=== PATIENT | female | born 1965 | race Caucasian/White ===

== ENCOUNTER 2021-03-31 23:55 | Emergency (ER) | payer BC ==
[2021-04-01 00:33] LABS: Acetaminophen Less than 6.0 mcg/mL (10.0-30.0); Alcohol 125 mg/dL (Less than 10); Salicylate Less than 8.0 mg/dL (15.0-30.0)
[2021-04-01 00:49] LABS: ALT (SGPT) 29 U/L (8-55); AST (SGOT) 21 U/L (5-34); Albumin 4.2 g/dL (3.5-5.0); Alkaline Phosphatase 83 U/L (40-110); Anion Gap 15 mmol/L (10-20); BUN (Urea Nitrogen) 10 mg/dL (9.8-20.1); Bilirubin, Total 0.3 mg/dL (0.2-1.2); Calc. Creatinine Clearance 0 mL/min (70-130); Calcium 10.6 mg/dL (7.8-10.44); Carbon Dioxide 20 mmol/L (22-29); Chloride 108 mmol/L (98-107); Globulin 2.8 g/dL (2.4-3.5); Glucose 144 mg/dL (70-105); Potassium 3.9 mmol/L (3.5-5.1); Sodium 139 mmol/L (136-145)
[2021-04-01 00:50] LABS: #Eosinphils 0.2 10x3/uL (0.0-0.5); #Monocytes 0.6 10x3/uL (0.0-1.1); #Neutrophils 5.3 10x3/uL (1.5-8.4); %Basophils 0.5 % (0.0-2.0); %Eosinophils 1.7 % (0.0-6.0); %Lymphocytes 30.2 % (18.0-47.0); %Monocytes 6.8 % (0.0-10.0); %Neutrophils 60.6 % (40.0-75.0); Hemoglobin 12.5 g/dL (12.0-15.5); Mean Corpuscular HGB CONC 31.3 g/dL (32.0-36.0); Mean Corpuscular Hemoglobin 28.5 pg (27.0-33.0); Mean Corpuscular Volume 90.9 fl (81.6-98.3); Mean Platelet Volume 10.4 fl (7.4-10.4); Platelet Count 286 10x3/uL (150-450); RBC Distribution Width 15.1 % (11.5-14.5); Red Blood Cell (RBC) Count 4.39 10x6/uL (3.90-5.03); White Blood Cell (WBC) Count 8.7 10x3/uL (3.5-10.5)
[2021-04-01 01:08] LABS: Bilirubin Neg (Negative); Blood, Urine 50 (Negative); Clarity Slightly Cloudy (Clear); Glucose, Urine (Dipstick) Normal (Negative); Ketone, Urine Negative (Negative); Leukocyte Negative (Negative); Nitrite Negative (Negative); Protein, Urine (Dipstick) Negative (Neg-Trace); Specific Gravity, Urine 1.025 (1.002-1.036); Urobilinogen Normal mg/dL (Less than 2)
[2021-04-01 01:37] LABS: Amphetamine Not Detected (NotDetected); Barbiturates Screen Not Detected (NotDetected); Benzodiazepine Screen Not Detected (NotDetected); Cocaine Metabolite Screen Not Detected (NotDetected); Methadone Not Detected (NotDetected); Methamphetamine Not Detected (NotDetected); Opiate Screen Not Detected (NotDetected); Oxycodone Screen Not Detected (NotDetected); Phencyclidine (PCP) Not Detected (NotDetected); THC/Cannabinoid Screen Not Detected (NotDetected); Tricyclic Screen Not Detected (NotDetected)
[2021-04-01 01:44] LABS: Bacteria/HPF 2+ HPF (None Seen); Squamous Epithelial 0-3 HPF (0-3)
== END 2021-04-01 02:35 | disposition home or self-care (01) ==
LOC: CSHERS 23:55
DX: R41.82 Altered mental status, unspecified (principal); R53.1 Weakness; R29.702 NIHSS score 2; E03.9 Hypothyroidism, unspecified; E78.5 Hyperlipidemia, unspecified; J45.909 Unspecified asthma, uncomplicated; K21.9 Gastro-esophageal reflux disease without esophagitis; Z79.899 Other long term (current) drug therapy
CPT/HCPCS: 36416; 70450; 80053; 80306; 80307; 81003; 81015; 84443; 84484; 85025; 93005

== ENCOUNTER → 2021-07-04 | Day surgery (SDC) | payer BC ==
[2021-06-30 16:17] VITALS: BMI 30.8
[~2021-07-04] MED LIST: CEFAZOLIN 1 GM VIAL ONE; Dexamethasone 20 MG/5 ML VIAL ONE; EPINEPHrine 1 MG/ML AMP ONE; Fentanyl 100 MCG/2 ML VIAL ONE; Glycopyrrolate 0.2 MG/ML 5 ML SYRINGE ONE; HYDROcodone/Acetaminophen 10/325 mg Tablet ONE; Lidocaine 1% MPF 2 ML VIAL ONE; Lidocaine 1% PF 5 ML VIAL ONE; Midazolam HCl 2 mg/2 ml Vial ONE; Ondansetron PF 4 MG/2 ML Vial ONE; PROPOFOL 20 ML ONE; PROPOFOL 40 ML ONE; Triamcinolone 40 MG/ML VIAL ONE
== END ==
LOC: CSHSDC 07:58
PROVIDERS: ATTEND Otolaryngology Plastic Surgery within the Head & Neck
PROC: 0C7S8ZZ Dilation of Larynx, Via Natural or Artificial Opening Endoscopic (ICD-10-PCS; principal; 2021-07-04)
PROC: 0C5R8ZZ Destruction of Epiglottis, Via Natural or Artificial Opening Endoscopic (ICD-10-PCS; principal; 2021-07-04)
DX: J38.6 Stenosis of larynx (principal)
CPT/HCPCS: J0171; J0690; J1100; J2250; J2405; J2704; J3010; J3301

== ENCOUNTER 2021-07-21 14:59 | Outpatient (CLI) | payer BC | END 2021-07-21 15:00 | disposition home or self-care (01) | LOC: CSHMAMMO 14:59 | PROVIDERS: ATTEND Internal Medicine | DX: Z12.31 Encounter for screening mammogram for malignant neoplasm of breast (principal) | CPT/HCPCS: 77063; 77067 ==

== ENCOUNTER 2022-09-14 15:27 | Outpatient (CLI) | payer BC | END 2022-09-14 15:28 | disposition home or self-care (01) | LOC: CSHMAMMO 15:27 | PROVIDERS: ATTEND Internal Medicine | DX: Z12.31 Encounter for screening mammogram for malignant neoplasm of breast (principal) | CPT/HCPCS: 77063; 77067 ==

== ENCOUNTER 2023-03-14 15:06 | Outpatient (CLI) | payer BC | END 2023-03-14 15:07 | disposition home or self-care (01) | LOC: CSHLAB 15:06 | PROVIDERS: ATTEND Otolaryngology Plastic Surgery within the Head & Neck | DX: Z01.818 Encounter for other preprocedural examination (principal); J38.6 Stenosis of larynx | CPT/HCPCS: 85014; 93005; 93010 ==

== ENCOUNTER 2023-03-19 07:20 | Day surgery (SDC) | payer BC ==
[2023-03-14 15:24] VITALS: BMI 30.4
[~2023-03-19 07:20] MED LIST changes: -CEFAZOLIN 1 GM VIAL ONE; -Dexamethasone 20 MG/5 ML VIAL ONE; +Dexmedetomidine 200 MCG/2 ML VIAL ONE; -EPINEPHrine 1 MG/ML AMP ONE; -Fentanyl 100 MCG/2 ML VIAL ONE; -Glycopyrrolate 0.2 MG/ML 5 ML SYRINGE ONE; -HYDROcodone/Acetaminophen 10/325 mg Tablet ONE; -Lidocaine 1% MPF 2 ML VIAL ONE; -Lidocaine 1% PF 5 ML VIAL ONE; +Lidocaine 4% Topical Sol 50 ML BOT ONE; -Midazolam HCl 2 mg/2 ml Vial ONE; -Ondansetron PF 4 MG/2 ML Vial ONE; -PROPOFOL 20 ML ONE; -PROPOFOL 40 ML ONE; -Triamcinolone 40 MG/ML VIAL ONE
[2023-03-19] MEDS ORDERED: Triamcinolone 40 MG/ML VIAL ONE (09:49)
[2023-03-19] MEDS ORDERED: EPINEPHrine 1 MG/ML AMP ONE (09:49)
[2023-03-19] MEDS ORDERED: Ondansetron PF 4 MG/2 ML Vial ONE (09:51)
[2023-03-19] MEDS ORDERED: fentaNYL 50 mcg/mL 1 mL Vial ONE ×3 (09:51→11:47)
[2023-03-19] MEDS ORDERED: Dexamethasone 20 MG/5 ML VIAL ONE (09:51)
[2023-03-19] MEDS ORDERED: PROPOFOL 60 ML ONE (09:51)
[2023-03-19] MEDS ORDERED: Midazolam HCl 2 mg/2 ml Vial ONE (09:51)
[2023-03-19] MEDS ORDERED: Lidocaine 1% PF 5 ML VIAL ONE (09:52)
[2023-03-19] MEDS ORDERED: Acetaminophen 325 MG TAB PO PRN (11:13)
[2023-03-19] MEDS ORDERED: Ondansetron PF 4 MG/2 ML Vial IVP PRN (11:13)
[2023-03-19] MEDS ORDERED: traMADol HCl 50 MG TAB PO PRN (11:17)
[2023-03-19] MEDS ORDERED: Morphine 2 MG/ML VIAL ONE ×2 (12:39→13:19)
[2023-03-20] MEDS ORDERED: Levothyroxine Sodium 112 MCG TAB PO SCH (06:00)
[2023-03-20] MEDS ORDERED: Modafinil 100 MG TAB PO SCH (09:00)
[2023-03-20] MEDS ORDERED: Estradiol 1 MG TAB PO SCH (09:00)
== END 2023-03-19 14:25 | disposition home or self-care (01) ==
LOC: CSHSDC 07:20
PROVIDERS: ATTEND Otolaryngology Plastic Surgery within the Head & Neck
PROC: [UNRECOGNIZED PROCEDURE] (principal; 2023-03-19)
PROC: 3E0F83Z Introduction of Anti-inflammatory into Respiratory Tract, Via Natural or Artificial Opening Endoscopic (ICD-10-PCS; principal; 2023-03-19)
DX: J38.6 Stenosis of larynx (principal); G43.909 Migraine, unspecified, not intractable, without status migrainosus; J45.909 Unspecified asthma, uncomplicated; K21.9 Gastro-esophageal reflux disease without esophagitis; E03.9 Hypothyroidism, unspecified; Z90.89 Acquired absence of other organs; Z87.59 Personal history of other complications of pregnancy, childbirth and the puerperium; Z98.51 Tubal ligation status; Z90.710 Acquired absence of both cervix and uterus; Z88.5 Allergy status to narcotic agent; Z79.890 Hormone replacement therapy; Z79.899 Other long term (current) drug therapy
CPT/HCPCS: C1726; J0171; J1100; J2250; J2272; J2405; J2704; J3010; J3301

== ENCOUNTER 2024-02-06 12:18 | Outpatient (CLI) | payer BC | END 2024-02-06 12:19 | disposition home or self-care (01) | LOC: CSHMAMMO 12:18 | PROVIDERS: ATTEND Internal Medicine | DX: Z12.31 Encounter for screening mammogram for malignant neoplasm of breast (principal); Z91.89 Other specified personal risk factors, not elsewhere classified | CPT/HCPCS: 77063; 77067 ==

== ENCOUNTER 2024-02-08 08:00 | Outpatient (CLI) | payer BC | END 2024-02-08 08:01 | disposition home or self-care (01) | LOC: CSHMAMMO 08:00 | PROVIDERS: ATTEND Internal Medicine | DX: N64.89 Other specified disorders of breast (principal) | CPT/HCPCS: G0279 ==